=== PATIENT | male | born 1945 | race Caucasian/White ===

== ENCOUNTER → 2017-03-18 | Outpatient (CLI) | payer MEDICARE ==
[~2017-03-18] MED LIST: ALBUTEROL2.5 MG/0.1 INH; ASA81BEC PO; ASPIRIN81 M2 PO; ATORVASTATIN CA40 MG PO; CARDIZEM; CARDIZEM CD120 MG PO; CENTRUM SILVER1 EAC2 PO; CEPHALEXIN 500500 M3 PO; COUMADIN 2.5MG2.5 M1 PO; CRESTOR10 MG PO; ELIQUIS5 MG PO; FLOMAX0.4 MG PO; FLONASE 0.05%50 MCG NASAL; GEMFIBROZIL 60600 MG; HCTZ PO; HYDROCHLOROTH12.5 M1 PO; HYDROCHLOROTH12.5 MG; HYDROCHLOROTH12.5 MG PO; HYDROCHLOROTHIAZIDE PO; HYDROCODON-ACE1 EAC8 PO; HYDROCODONE-AP1 EA11 PO; HYDROCODONE-AP1 EAC6 PO; HYDROCODONE-APA1 TA1 PO; IRON; IRON PO; KEFLEX500 MG; LEVAQUIN 500 M500 M2 PO; LIORESAL 10 MG10 MG PO; LISINOPRIL10 MG PO; LOPRESSOR 50 MG50 M1; LOPRESSOR100 MG PO; METHADONE HCL 110 M1 PO; METHADONE HCL 110 MG PO; METHYLPHENIDATE5 M1 PO; METHYLPHENIDATE5 MG PO; METOPROLOL TAR100 MG PO; MOBIC7.5 MG PO; MULTIVITAMINS; MULTIVITAMINS PO; NORCO 5-325 TA1 EACH PO; PACERONE200 MG PO; PAXIL 20 MG TAB20 M1; PAXIL10 MG PO; PAXIL40 MG PO; PERCOCET 5-3251 EACH; PHENERGAN 25 MG25 M1 PO; PREDNISONE 10 M10 M1 PO; PRILOSEC 20 MG20 MG PO; PROSCAR 5MG TABL5 MG PO; RITALIN5 MG PO; SIMVASTATIN80 MG PO; SINGULAIR 10 MG10 M1 PO; SPIRIVA18 MCG IH; VENTOLIN HFA 1818 GM INH; VITAMIN C; VITAMIN C1000 MG PO; VITAMINC500 PO; XANAX 0.5 MG0.5 MG PO; ZOCOR40 MG PO; ZOCOR80 MG
--- NOTE | 2017-04-03 07:40 | PAINCON ---
[address] [address] PAIN MANAGEMENT CONSULTATION Name: SHAILESH ROSALES [id number] Admission: 03/18/17 Attend Phys: Josh Carranza DO Discharge: Date of : 49 Report #: [id number] THIS REPORT FOR: //name// CC: FERNANDEZ physician/PCP Josh Carranza Primary Care Physician Referring Physician HISTORY OF PRESENT ILLNESS: As you know, the patient is a pleasant 71-year-old male who returns today in followup visit for continuation of medication therapy. We are treating the patient for multiple pain generators with the most intensive generators of his low back. He suffers from symptomatic lumbar radiculopathy secondary to spinal stenosis. He indicates the pain medications are working beneficially, despite the elevated pain level provided today of 10/08. He returns today in followup visit to receive refill of medications and undergo an epidural injection under fluoroscopic guidance to address recurrent lumbar radicular symptoms. He denies injury or trauma that may have led to progression of symptoms. He states he has been in his normal state of health since our last visit, except for increasing back pain. ALLERGIES: NAPROXEN, SULFAMETHOXAZOLE AND CIPROFLOXACIN. CURRENT MEDICATIONS: Alprazolam, aspirin, atorvastatin, baclofen, diltiazem, finasteride, hydrochlorothiazide, hydrocodone, lisinopril, methadone, methylphenidate, metoprolol, omeprazole, paroxetine and tamsulosin. SOCIAL HISTORY: The patient continues to deny tobacco, alcohol, IV or illicit drug use. He is retired, retired years ago, unaccompanied today. IMAGING: No new imaging available. PHYSICAL EXAMINATION: VITAL SIGNS: Blood pressure 120/67, pulse 59 and respiratory rate 16, unlabored. The patient is 95% on room air. Current temperature 98.5 degrees Fahrenheit. Weight is 226 pounds, BMI calculated at 31. GENERAL: Well-developed, well-nourished and well-hydrated 71-year-old male. He appears his stated age, placing pain score anywhere between 7-8/10. HEENT: He is normocephalic, atraumatic. Pupils equal, round and reactive to light. Extraocular muscles are intact. Sclerae nonicteric, without injection. EXTREMITIES: Show no clubbing, no cyanosis and no edema. MUSCULOSKELETAL: Seated straight leg raising negative. Supine straight leg raising positive. Fabere's test negative. Modified Gaenslen's positive for axial back pain. Ankle clonus negative. Babinski is negative. Muscle bulk and tone is symmetrical in the lower extremities bilaterally. ASSESSMENT: 1. Sympt[place] [address] PAIN MANAGEMENT CONSULTATION Name: CONNIESHAILESH Sandy Room: [facility]#: [id number] Admission: 03/18/17 Attend Phys: Josh Carranza DO Discharge: Date of : 49 Report #: [id number] 2. Spinal stenosis of lumbar spine. 3. Displacement of lumbar intervertebral disk with radiculopathy. 4. Lumbosacral spondylosis with radiculopathy. 5. Lumbar degeneration. 6. Chronic intractable pain. PLAN: 1. The patient returns today in followup visit for medication management. He is also requested epidural injection under fluoroscopic guidance. The patient has noted good efficacy with epidurals in the past. He is hopeful to reduce his 7/10 pain today. He denies injury or trauma that may have led to progression of symptoms. Overall, the patient states medications in combination with periodic epidural injections worked well, up to 80% improvement in symptoms. He is hopeful to see similar improvement today. 2. The patient was provided prescription of methadone 10 mg dose 1 tab p.o. b.i.d., given the patient #60, releases of today, 4 weeks from today, 8 weeks from today and 3 months' worth of medication. 3. The patient was provided prescription of hydrocodone/acetaminophen 7.5/325 one tab every 6 hours p.r.n. for pain, #120, releases of today, 4 weeks from today, 8 weeks from today and 3 months' worth of medication. 4. The patient was provided prescription of methylphenidate 5 mg dose 1 tab p.o. b.i.d. I have given the patient #60 with 2 refills, 3 months' worth of medication. 5. The patient will return to our clinic in 3 months for ongoing medical therapy. We are hopeful today's epidural injection will provide the patient with good efficacy in conjunction with the medications. If this does not provide good response and his pain does return, I will have him return for the next in the series of epidural injections. PROCEDURE NOTE PROCEDURE: Lumbar epidural steroid injection under fluoroscopic guidance. DESCRIPTION OF PROCEDURE: After obtaining written consent, the patient was taken back to fluoroscopy suite, placed in prone position with pillow under abdomen to decrease lumbar lordosis. Skin overlying lumbosacral area was then prepped and draped in an aseptic fashion. Lumbar intervertebral spaces identified by AP fluoroscopy. Skin and subcutaneous tissue overlying target site of injection was anesthetized with 3 mL of 1% lidocaine. A 20-gauge 3-1/2 inch Tuohy needle advanced under fluoroscopic guidance towards the epidural space using a paramedian approach. Epidural space identified using loss of resistance to air technique. After negative aspiration for heme or cerebrospinal fluid, 1 mL of Omnipaque was injected. Lumbar epidurogram was confirmed using both AP and lateral fluoroscopy. [place] [address] PAIN MANAGEMENT CONSULTATION Name: SHAILESH ROSALES Room: [facility]#: [id number] Admission: 03/18/17 Attend Phys: Josh Carranza DO Discharge: Date of : 49 Report #: [id number] heme or cerebrospinal fluid, 5 mL of a solution containing 2 mL 40 mg per mL, 80 mg total triamcinolone, 3 mL lidocaine 1% injected slowly. Needle retracted skilled nursing, needle tract flushed with 3 mL of 1% lidocaine. Needle then removed. Sterile bandage placed over the injection site. No new motor deficits present in the lower extremity following procedure. The patient tolerated the procedure well, carefully escorted to the recovery room in stable condition. No apparent complication. After meeting discharge criteria, the patient discharged home. <ELECTRONICALLY SIGNED> By: Josh Carranza DO 04/03/17 0740 1206 [id number] Carranza DO /nt
== END | disposition home or self-care (01) ==
LOC: M.PC 01:12
DX: M51.16 Intervertebral disc disorders with radiculopathy, lumbar region (principal); M48.061 Spinal stenosis, lumbar region without neurogenic claudication; M47.27 Other spondylosis with radiculopathy, lumbosacral region; G89.29 Other chronic pain; I48.91 Unspecified atrial fibrillation; F41.8 Other specified anxiety disorders; Z88.2 Allergy status to sulfonamides; Z88.8 Allergy status to other drugs, medicaments and biological substances; Z79.899 Other long term (current) drug therapy; Z79.891 Long term (current) use of opiate analgesic; Z79.82 Long term (current) use of aspirin

== ENCOUNTER → 2017-06-24 | Outpatient (CLI) | payer MEDICARE ==
--- NOTE | 2017-06-24 15:46 | 2DMMODE ---
[place] [address] 2 D/M-MODE ECHOCARDIOGRAM Name: SHAILESH ROSALES Room: [facility]#: [id number] Admission: 06/24/17 Attend Phys: Dieudonne Rojas, Discharge: Date of : 49 Date of Service: 06/24/17 1546 Report #: [id number] THIS REPORT FOR: //name// APPROVED REPORT Study performed: 06/24/2017 15:00:04 EXAM: Comprehensive 2D, Doppler, and color-flow Echocardiogram Patient Location: Out-Patient Status: routine BSA: 2.17 HR: 72 bpm BP: 120/80 mmHg Other Information Study Quality: Good Indications Aortic Valve Disease 2D Dimensions LVEF(%): 53.38 (>50%) IVSd: 10.52 (7-11mm) LVOT Diam: 20.67 (18-24mm) LVDd: 49.17 mm PWd: 8.79 (7-11mm) Ascending Ao: 31.93 (22-36mm) LVDs: 35.61 (25-40mm) Aortic Root: 28.89 mm Brunson's LVEF: 53.38 % Volumes Left Atrial Volume (Systole) LA ESV Index: 24.40 mL/m2 Aortic Valve AoV Peak Cheo.: 2.48 m/s AO Peak Gr.: 24.62 mmHg LVOT Max P.52 mmHg AO Mean Gr.: 14.86 mmHg LVOT Mean P.04 mmHg LVOT Max V: 0.79 m/s AO V2 VTI: 44.93 cm LVOT Mean V: 0.46 m/s JJ (VTI): 1.30 cm2 LVOT V1 VTI: 17.37 cm Mitral Valve E/A Ratio: 0.89 MV Decel. Time: 209.27 [place] [address] 2 D/M-MODE ECHOCARDIOGRAM Name: SHAILESH ROSALES Room: [facility]#: [id number] Admission: 06/24/17 Attend Phys: Dieudonne Rojas, Discharge: Date of : 49 Date of Service: 06/24/17 1546 Report #: [id number] MV E Max Cheo.: 0.62 m/s MV PHT: 60.69 ms MVA (PHT): 3.63 cm2 TDI E/Lateral E': 5.64 E/Medial E': 8.86 Medial E' Cheo.: 0.07 m/s Lateral E' Cheo.: 0.11 m/s Pulmonary Valve PV Peak Cheo.: 1.15 m/s PV Peak Gr.: 5.31 mmHg Tricuspid Valve TR Peak Gr.: 33.00 mmHg RVSP: 38.00 mmHg Left Ventricle The left ventricle is normal size. There is normal LV segmental wall motion. There is normal left ventricular wall thickness. Left ventricular systolic function is normal. The left ventricular ejection fraction is within the normal range. LVEF is 55%. Grade I - abnormal relaxation pattern. Right Ventricle The right ventricle is normal size. The right ventricular systolic function is normal. Atria The left atrium size is normal. The right atrium size is normal. Aortic Valve Aortic bioprosthesis is noted Bioprosthetic aortic valve is present. No aortic regurgitation is present. No hemodynamically significant valvular aortic stenosis. Mitral Valve The mitral valve is normal in structure. Mild mitral regurgitation. No evidence of mitral valve stenosis. Tricuspid Valve The tricuspid valve is normal in structure. Mild tricuspid regurgitation. The RVSP is _38 mmHg. Pulmonic Valve The pulmonary valve is normal in structure. [place] [address] 2 D/M-MODE ECHOCARDIOGRAM Name: SHAILESH ROSALES Room: [facility]#: [id number] Admission: 06/24/17 Attend Phys: Dieudonne Rojas, Discharge: Date of : 49 Date of Service: 06/24/17 1546 Report #: [id number] Great Vessels The aortic root is normal in size. IVC is normal in size and collapses with >50% inspiration Pericardium There is no pericardial effusion. <Conclusion> The left ventricle is normal size. There is normal left ventricular wall thickness. Left ventricular systolic function is normal. The left ventricular ejection fraction is within the normal range. LVEF is 55%. Grade I - abnormal relaxation pattern. The right ventricle is normal size. The left atrium size is normal. Aortic bioprosthesis is noted No aortic regurgitation is present. No hemodynamically significant valvular aortic stenosis. The mitral valve is normal in structure. Mild mitral regurgitation. The tricuspid valve is normal in structure. Mild tricuspid regurgitation. The RVSP is _38 mmHg. The aortic root is normal in size. IVC is normal in size and collapses with >50% inspiration There is no pericardial effusion. There is normal LV segmental wall motion. Bioprosthetic aortic valve is present. <ELECTRONICALLY SIGNED> By: Zaid Silva MD, FACC 06/24/17 1546 1546 1546 Zaid Silva MD, FACC /INF
== END ==
LOC: M.CRD 14:46
DX: I08.1 Rheumatic disorders of both mitral and tricuspid valves (principal); Z95.2 Presence of prosthetic heart valve

== ENCOUNTER 2018-06-13 20:53 | Inpatient (IN) | payer OTHER, MEDICARE ==
[~2018-06-13] VITALS: Ht 180.3 cm; Wt 101.6 kg
[2018-06-13 21:08] VITALS: BP 111/64
[2018-06-13 21:50] LABS: URINE BILIRUBIN NEGATIVE (Negative); URINE BLOOD NEGATIVE (Negative); URINE CLARITY CLEAR; URINE COLOR YELLOW; URINE GLUCOSE-RANDOM NEGATIVE (Negative); URINE KETONES TRACE (Negative); URINE LEUKOCYTES NEGATIVE (Negative); URINE NITRITE NEGATIVE (Negative); URINE PROTEIN TRACE (Negative); URINE SPECIFIC GRAVITY >= 1.030 (1.005-1.030)
[2018-06-13 22:06] LABS: HEMATOCRIT 40.3 % (42.0-52.0); HEMOGLOBIN 13.8 gm/dL (14.0-18.0); MCH 27.9 pg (26.0-34.0); MCHC 34.3 g/dL (28.0-37.0); MCV 81.4 fL (80.0-100.0); MPV 7.7 fl. (7.2-11.1); RBC 4.95 mil/uL (4.50-6.00); RDW-CV 15.5 % (10.5-14.5); WBC 8.3 thou/uL (4.0-11.0)
[2018-06-13 22:14] LABS: APTT 26.4 Seconds (25.0-31.3); INR 1.2; PROTIME 11.9 Seconds (9.20-11.50)
[2018-06-13 22:30] LABS: ALBUMIN 3.3 g/dL (3.4-5.0); ALKALINE PHOSPHATASE 83 U/L (46-116); ANION GAP 7 mmol/L (7-16); BUN 25 mg/dL (7-18); CALCIUM 9.1 mg/dL (8.5-10.1); CHLORIDE 107 mmol/L (98-107); CO2 29 mmol/L (21-32); CREATININE 1.2 mg/dL (0.6-1.3); GLUCOSE 120 mg/dL (70-99); POTASSIUM 4.2 mmol/L (3.5-5.1); SGOT 16 U/L (15-37); SGPT 22 U/L (30-65); SODIUM 143 mmol/L (136-145); TOTAL BILIRUBIN 0.4 mg/dL (<0.1-1.0); TOTAL PROTEIN 6.5 g/dL (6.4-8.2); TROPONIN-I LEVEL <0.06 ng/mL (<0.06)
[2018-06-14 02:15] VITALS: BP 146/60
--- NOTE | 2018-06-14 04:55 | NUR ---
RECEIVED REPORT AND ASSUMED CARE OF PATIENT FROM ED. PATIENT REMAINS STABLE THIS SHIFT AND HAS DENIED FURTHER VISUAL DISTURBANCES. NIH 0 SINCE ADMISSION. PATIENT HAS C/O PAIN IN NECK, BACK, AND HIP THAT WAS PARTIALLY RELIEVED WITH PO MEDICATION. PATIENT HAS BEEN ENCOURAGED TO RELAX AND REPOSITION FOR COMFORT. MRI/MRA FOR THE AM, NEUROLOGY CONSULT PENDING. CALL LIGHT WITHIN REACH
[2018-06-14 05:37] LABS: CHOLESTEROL 235 mg/dL (<200); HDL CHOLESTEROL 38 mg/dL (>40); LDL CHOLESTEROL 171 mg/dL (<100); TC:HDL 6.2 Ratio (Not establshd); TRIGLYCERIDE 134 mg/dL (<150); VLDL 27 mg/dL (<40)
[2018-06-14 05:39] LABS: SERUM ASSESSMENT Clear
[2018-06-14 08:00] VITALS: BP 103/62
--- NOTE | 2018-06-14 14:58 | NUR ---
PT ORDERS RECEIVED. PT AND FAMILY PRESENT, PREPARING FOR DISCHARGE TO HOME. PT STATES NO CONCERNS REGARDING STABLE GAIT AND TRANSFERS, INDICATES STRONG SOCIAL SUPPORT AT HOME AND ACCESS TO DME IF INDICATED. PT DOES DEMO TO PT ABILITY TO TRANSFER AND GAIT INDEP W/O DME SUPPORT. PT DECLINES SKILLED PT SERVICES. WILL DISCHARGE FROM SKILLED PT SERVICES AT THIS TIME.
[2018-06-14] MEDS ORDERED: ELIQUIS5 MG PO ×2 (15:36→15:37)
[2018-06-14 15:39] VITALS: BP 126/66
[2018-06-14 15:46] VITALS: BP 126/66
[2018-06-14 15:50] VITALS: BP 126/66
--- NOTE | 2018-06-14 16:37 | NUR ---
PT ALERT AND ORIENTED X 4. DENIED PAIN AND NAUSEA. DENIES ANY VISUAL DEFICIT AT THIS TIME. IV PATENT. PT HAD MRI/MRA PROCEDURE DONE @ 1115. INDICATED PAIN AFTER PROCEDURE AND GIVEN HYDROCODONE FOR HIP, LOWER BACK, AND NECK PAIN. HAD SPEECH/SWALLOW EVAL EARLIER IN AM. RECEIVED REGULAR DIET TRAY FOR LUNCH-TOLERATED WELL. PT GIVEN DISCHARGE INSTRUCTIONS. IV REMOVED X 2. NIH STROKE SCALE COMPLETED WITH NO DEFICITS NOTED. PT LEFT WITH PERSONAL BELONGING BY W/C WITH NURSING STAFF TO LEAVE WITH SPOUSE BY PRIVATE CAR @ 3630.
[2018-06-14 16:49] VITALS: BP 126/66
--- NOTE | 2018-06-14 17:38 | EKG ---
[place] [address] ELECTROCARDIOGRAM REPORT Name: SHAILESH ROSALES Room: [address] IN M.R.#: [id number] Admission: 06/14/18 Attend Phys: Josh Ervin MD Discharge: 06/14/18 Date of : 49 Report #: [id number] THIS REPORT FOR: //name// [facility] ED Test Date: 2018-06-13 Test Time: 21:50:02 Pat Name: SHAILESH ROSALES Department: Room: [facility] Gender: M Surgical Services Manager: AP : 1945 Requested By: Jaye Heck Order Number: [id number] MD: Dieudonne Rojas Measurements Intervals [place] Rate: 71 P: 68 CT: 191 QRS: 42 QRSD: 87 T: 66 QT: 377 QTc: 410 Interpretive Statements Sinus rhythm Abnormal inferior Q waves ST elevation, consider inferior injury Compared to ECG 02/07/2016 04:32:24 Inferior Q waves now present Q waves now present Myocardial infarct finding now present ST (T wave) deviation still present Electronically Signed On 06-14-2018 17:38:40 CDT by Dieudonne Rojas [email or web address] <ELECTRONICALLY SIGNED> By: Dieudonne Rojas MD, FACC 06/14/18 1738 215 215 Dieudonne Rojas MD, FACC /EPI
[2018-06-15 03:06] LABS: GLYCOHEMOGLOBIN (HGB A1C) 5.3 % (4.8-5.6)
--- NOTE | 2018-06-15 08:22 | CON ---
[address] [address] CONSULTATION Name: CONNIESHAILESH E Room: [address]#: [id number] Admission: 06/14/18 Attend Phys: Josh Ervin MD Discharge: 06/14/18 Date of : 49 Report #: [id number] THIS REPORT FOR: //name// CC: Josh Cruz DO CARDIOLOGY CONSULTATION INDICATION: Acute visual loss. HISTORY OF PRESENT ILLNESS: The patient is a very pleasant 72-year-old gentleman who is well known to myself. He has a history of aortic valve replacement with a AVILA graft to the LAD in June 2013. At that time, he had an episode of atrial fibrillation without clinical recurrence. He has not been anticoagulated. He was admitted to the hospital with a "brown spot" over his right eye. The symptoms resolved within 2 hours. He has had no further complaint at this time. He denies any chest pain or shortness of breath. He is not having palpitations. PAST MEDICAL AND SURGICAL HISTORY: 1. Aortic valve replacement with AVILA graft to the LAD in June 2013. The aortic valve is a bioprosthetic valve. 2. Knee surgery remotely. 3. Pelvic fracture remotely. 4. Rotator cuff surgery remotely. 5. Tonsillectomy remotely. 6. Hyperlipidemia. 7. Hypertension. 8. Coronary artery disease. FAMILY HISTORY: Noncontributory. SOCIAL HISTORY: The patient quit smoking in 1997. He does not drink alcohol. ALLERGIES: CIPROFLOXACIN, NAPROSYN, SULFA. CURRENT MEDICATIONS: Xanax 0.5 mg p.r.n., aspirin 81 mg daily, atorvastatin 80 mg daily, baclofen 20 mg as directed, diltiazem CD 120 mg daily, finasteride 5 mg daily, hydrochlorothiazide 12.5 mg every other day, [place] 7.5/325 q.i.d. p.r.n., lisinopril 10 mg daily, methadone 10 mg daily or as directed, metoprolol 100 mg b.i.d., Nitrostat p.r.n., omeprazole 20 mg daily, Paxil 40 mg daily, Flomax 0.4 mg as directed, Tobrex eyedrops b.i.d. PHYSICAL EXAMINATION: [place] [address] CONSULTATION Name: CONNIESHAILESH Sandy Room: [address]#: [id number] Admission: 06/14/18 Attend Phys: Josh Ervin MD Discharge: 06/14/18 Date of : 49 Report #: [id number] VITAL SIGNS: Stable. Blood pressure 103/62, pulse 68 and regular. GENERAL: This is a very pleasant gentleman who is in no distress. Mood and affect appropriate. HEENT: Extraocular muscles intact. Mucous membranes moist. NECK: Shows no jugular venous distention. There are no carotid bruits. CHEST: Reveals clear lung newell. CARDIAC: Reveals regular rhythm with grade 2/6 systolic ejection murmur. ABDOMEN: Reveals normal bowel sounds. The abdomen is soft and nontender. EXTREMITIES: Shows no edema. Peripheral pulses 2+ and palpable. LABORATORY DATA: A 12-lead EKG shows sinus rhythm. Interestingly, there is some ST elevation in inferior leads with Q-waves inferiorly. The patient has no history of OK. Troponins are negative x 3 sets. IMPRESSION AND RECOMMENDATIONS: 1. Visual changes, possibly due to retinal embolism, have resolved. With a history of paroxysmal atrial fibrillation, would recommend full anticoagulation with Eliquis 5 mg b.i.d. The patient is to follow up in the office on July 03. 2. Coronary artery disease, presently stable. He is having no symptoms to suggest acute coronary syndrome. 3. Bioprosthetic aortic valve in place. Continue serial echocardiograms yearly. 4. Hypertension. Blood pressure adequately controlled on current cardiac regimen. 5. Hyperlipidemia. Continue atorvastatin 80 mg daily. At this point in time, the patient appears stable for discharge. Keep followup as directed. <ELECTRONICALLY SIGNED> By: Dieudonne Rojas MD, FACC 06/15/18 0822 1434 [id number] Rojas MD, FACC /nt
== END 2018-06-14 16:20 | disposition home or self-care (01) | DRG 69 ==
LOC: M.ERS 20:53 → M.TBA-ER 06-14 01:22 → M.2W 06-14 01:22
PROVIDERS: Physician Assistant; ADMIT Internal Medicine
DX: G45.9 Transient cerebral ischemic attack, unspecified (principal); M19.90 Unspecified osteoarthritis, unspecified site; I10 Essential (primary) hypertension; E78.00 Pure hypercholesterolemia, unspecified; I48.0 Paroxysmal atrial fibrillation; I25.10 Atherosclerotic heart disease of native coronary artery without angina pectoris; F43.10 Post-traumatic stress disorder, unspecified; Z96.643 Presence of artificial hip joint, bilateral; Z96.653 Presence of artificial knee joint, bilateral; I25.2 Old myocardial infarction; Z86.73 Personal history of transient ischemic attack (TIA), and cerebral infarction without residual deficits; Z87.891 Personal history of nicotine dependence; Z90.49 Acquired absence of other specified parts of digestive tract; Z95.1 Presence of aortocoronary bypass graft; Z87.81 Personal history of (healed) traumatic fracture; Z95.2 Presence of prosthetic heart valve; Z79.82 Long term (current) use of aspirin; Z79.899 Other long term (current) drug therapy; Z88.1 Allergy status to other antibiotic agents; Z88.2 Allergy status to sulfonamides; Z88.8 Allergy status to other drugs, medicaments and biological substances

== ENCOUNTER → 2019-02-03 | Outpatient (CLI) | payer MEDICARE ==
[2019-02-03 10:52] LABS: CHOLESTEROL 161 mg/dL (<200); HDL CHOLESTEROL 42 mg/dL (>40); LDL CHOLESTEROL 96 mg/dL (<100); TC:HDL 3.8 Ratio (Not establshd); TRIGLYCERIDE 116 mg/dL (<150); VLDL 23 mg/dL (<40)
[2019-02-03 10:53] LABS: SERUM ASSESSMENT Clear
== END ==
LOC: M.LAB 08:53
PROVIDERS: Internal Medicine Cardiovascular Disease
DX: I10 Essential (primary) hypertension (principal)

== ENCOUNTER → 2019-11-09 | Outpatient (CLI) | payer MEDICARE ==
[2019-11-09 11:18] LABS: CHOLESTEROL 145 mg/dL (<200); HDL CHOLESTEROL 49 mg/dL (>40); LDL CHOLESTEROL 80 mg/dL (<100); TRIGLYCERIDE 83 mg/dL (<150); VLDL 17 mg/dL (<40)
[2019-11-09 11:32] LABS: SERUM ASSESSMENT Clear
== END ==
LOC: M.LAB 08:12
PROVIDERS: ATTEND Internal Medicine Cardiovascular Disease
DX: E78.5 Hyperlipidemia, unspecified (principal)

== ENCOUNTER → 2020-01-27 | Outpatient (CLI) | payer MEDICARE | LOC: M.MRI 12:41 | PROVIDERS: ATTEND Anesthesiology Pain Medicine | DX: M43.22 Fusion of spine, cervical region (principal); M25.552 Pain in left hip; M48.02 Spinal stenosis, cervical region; M25.78 Osteophyte, vertebrae; M85.88 Other specified disorders of bone density and structure, other site; Z98.890 Other specified postprocedural states ==

== ENCOUNTER → 2020-03-18 | Outpatient (CLI) | payer MEDICARE ==
[~2020-03-18] MED LIST changes: +AMOXICILLIN 50500 MG PO; +DILTIAZEM 24HR120 M1 PO; +LEXAPRO20 MG PO; +LIPITOR40 MG PO; +MEDROLDOSEPACK PO; +XANAX 0.5 MG0.5 M1 PO
--- NOTE | 2020-03-21 17:38 | CARDNUC ---
[place] [address] CARDIAC NUCLEAR IMAGING REPORT Name: SHAILESH ROSALES Room: [facility]#: [id number] Admission: 03/18/20 Attend Phys: Dieudonne Rojas, Discharge: Date of : 49 Date of Service: 03/21/20 1738 Report #: [id number] THIS REPORT FOR: cc: Verna Cruz Linda J. DO Liston, Michael J. MD [facility] ~ APPROVED REPORT Imaging Protocol: Stress Tc-99m/Rest Tc-99m 1 day Study performed: 03/18/2020 12:30:00 Indication: Chest pain Patient Location: Out-Patient Stress Tech: Loraine Multani Stress Nurse: Ivon Farris RN Ht: 5 ft 11 in Wt: 216 lbs BSA: 2.18 m2 BMI: 30.12 Medical History Medical History: Atrial Fibrillation, HTN, Hyperlipidemia Medications: metoprolool, asa 81, diltiazem, lisinopril, atorvastatin Allergies: sulfa, cipro, naproxen Cardiac Risk Factors: Age, Hyperlipidemia, HTN Exercise History: Indeterminate Meds Held (24 hrs): metoprolol Resting Data Rest SPECT myocardial perfusion imaging was performed in supine position 30 minutes following the intravenous injection of 10.8 mCi of Tc-99m Sestamibi. Time of rest injection: 12:45 The images were gated to evaluate regional wall motion and calculate left ventricular ejection fraction. Administration Route: IV Administration Site: Right AC Pharmacologic Stress Pharmacologic stress test was performed by injecting Regadenoson 0.4 mg IV push over 10-15 seconds immediately followed by the intravenous injection of 33.8 mCi of Tc-99m Sestamibi. Time of stress injection: [address] [place] [address] CARDIAC NUCLEAR IMAGING REPORT Name: SHAILESH ROSALES Room: [facility]#: [id number] Admission: 03/18/20 Attend Phys: Dieudonne Rojas, Discharge: Date of : 49 Date of Service: 03/21/20 1738 Report #: [id number] Administration Route: IV Administration Site: Right AC Gated Stress SPECT was performed 45 minutes after stress injection. The images were gated to evaluate regional wall motion and calculate left ventricular ejection fraction. Prone imaging was performed. Stress Test Details Stress Test: Pharmacologic stress testing performed using 0.4 mg of regadenoson per 5 mL given IV over 10 seconds. Reason for pharmacologic stress test: physical limitation. HR Max Heart Rate (APMHR): 148 bpm Resting HR: 55 bpm Target HR (85% APMHR): 125 bpm Max HR Achieved: 74 bpm % of APMHR: 50 Recovery HR: 67 bpm BP Resting BP: 123/70 mmHg Max BP: 90/55 mmHg Recovery BP: 105/66 mmHg ECG Resting ECG: Sinus Rhythm Stress ECG: Sinus Rhythm ST Change: None Arrhythmia: None Recovery ECG: Sinus Rhythm Recovery ST Change: None Recovery Arrhythmia: None Clinical Reason for Termination: Completed protocol The patient tolerated Lexiscan infusion without significant cardiac symptoms. Nurse Comments pt unable to walk on treadmill due to back problems Stress ECG Conclusion Baseline twelve-lead EKG shows subtle ST elevation in the inferior and inferolateral leads that persist throughout the stress phase. No other significant abnormalities or changes were noted. There were no stress[place] [address] CARDIAC NUCLEAR IMAGING REPORT Name: CONNIESHAILESH LOI Room: [facility]#: [id number] Admission: 03/18/20 Attend Phys: Dieudonne Rojas, Discharge: Date of : 49 Date of Service: 03/21/20 1738 Report #: [id number] Study Quality Study: Good Artifact: No artifact Study Data At rest, the left ventricular ejection fraction was 59%.. Post stress, the left ventricular ejection was 63%.. TID = 0.95. Perfusion Perfusion images obtained at rest and post Lexiscan stress show a moderate size severe intensity defect involving the basal to mid inferior wall consistent with prior inferior wall infarct. No significant reversible defects were identified. Wall Motion The basal inferior wall appears severely hypokinetic to akinetic. There is septal wall motion abnormality of uncertain significance. Global LV systolic function appears preserved. Nuclear Conclusion ECG Findings: negative for ischemia Clinical Findings: negative for ischemia Nuclear Findings: negative for ischemia Exercise Capacity: not assessed Left Ventricular Function: Preserved Perfusion images show evidence of prior inferior wall infarct. There was no evidence of ischemia. Global LV systolic function is preserved. This is not a high risk study. <Conclusion> Baseline twelve-lead EKG shows subtle ST elevation in the inferior and inferolateral leads that persist throughout the stress phase. No other significant abnormalities or changes were noted. There were no stress-induced arrhythmias. <ELECTRONICALLY SIGNED> By: Dieudonne Rojas MD, FACC 03/21/20 1738 1738 1738 Dieudonne Rojas MD, FACC /INF
== END ==
LOC: M.NUC 03-14 12:43
PROVIDERS: ATTEND Internal Medicine Cardiovascular Disease
DX: I25.10 Atherosclerotic heart disease of native coronary artery without angina pectoris (principal); R07.9 Chest pain, unspecified; I48.91 Unspecified atrial fibrillation; I10 Essential (primary) hypertension; E78.5 Hyperlipidemia, unspecified; Z88.8 Allergy status to other drugs, medicaments and biological substances

== ENCOUNTER 2020-03-22 10:48 | Observation (INO) | payer MEDICARE ==
[2020-03-22] VITALS (10 sets, daily range): BP systolic 98–149; BP diastolic 53–70
[~2020-03-22] VITALS: Ht 182.9 cm; Wt 97.5 kg
[~2020-03-22 10:48] MED LIST changes: -AMOXICILLIN 50500 MG PO; -DILTIAZEM 24HR120 M1 PO; -LEXAPRO20 MG PO; -MEDROLDOSEPACK PO; -XANAX 0.5 MG0.5 M1 PO
[2020-03-22] MEDS ORDERED: DILTIAZEM 24HR120 M1 PO (11:02)
[2020-03-22] MEDS ORDERED: LEXAPRO20 MG PO (11:03)
[2020-03-22] MEDS ORDERED: XANAX 0.5 MG0.5 M1 PO (11:03)
[2020-03-22 11:15] LABS: ABSOLUTE BASOPHILS 0.1 thou/uL (0.0-0.2); ABSOLUTE LYMPHOCYTES 1.4 thou/uL (0.8-5.3); ABSOLUTE MONOCYTES 1.1 thou/uL (0.0-1.2); BASOPHILS 0.4 %; EOSINOPHILS 0.1 %; HEMATOCRIT 40.5 % (42.0-52.0); HEMOGLOBIN 13.7 gm/dL (14.0-18.0); LYMPHOCYTES 9.4 %; MCH 27.7 pg (26.0-34.0); MCHC 33.8 g/dL (28.0-37.0); MCV 81.9 fL (80.0-100.0); MONOCYTES 7.8 %; MPV 7.1 fl. (7.2-11.1); NUCLEATED RBCS 0 /100WBC; PLATELET COUNT* 315 thou/uL (150-400); POLYS 82.3 %; RBC 4.94 mil/uL (4.50-6.00); RDW-CV 15.5 % (10.5-14.5); WBC 14.6 thou/uL (4.0-11.0)
[2020-03-22 11:24] LABS: CALCIUM 9.4 mg/dL (8.5-10.1); CREATININE 0.8 mg/dL (0.6-1.3); POTASSIUM 4.3 mmol/L (3.5-5.1)
[2020-03-22 11:35] LABS: APTT < 20.0 Seconds (25.0-31.3); INR 1.1
[2020-03-22 11:36] LABS: ALBUMIN 3.3 g/dL (3.4-5.0); TOTAL BILIRUBIN 0.4 mg/dL (<0.1-1.0); TOTAL PROTEIN 6.9 g/dL (6.4-8.2)
[2020-03-22] MEDS ORDERED: MEDROLDOSEPACK PO (15:13)
[2020-03-22] MEDS ORDERED: AMOXICILLIN 50500 MG PO (15:14)
--- NOTE | 2020-03-22 16:47 | EKG ---
[place] [address] ELECTROCARDIOGRAM REPORT Name: CONNIESHAILESH LOI Room: [address] ADM IN M.R.#: [id number] Admission: 03/22/20 Attend Phys: Dieudonne Rojas, Discharge: Date of : 49 Date of Service: 03/22/20 1055 Report #: [id number] THIS REPORT FOR: //name// [facility] ED Test Date: 2020-03-22 Test Time: 10:55:34 Pat Name: SHAILESH ROSALES Department: Room: [address] Gender: M It Risk Analyst: BRIAN : 1945 Requested By: Dieudnone Rojas Order Number: [id number] Reading MD: Dieudonne Rojas Measurements Intervals [place] Rate: 58 P: 111 AK: 213 QRS: 50 QRSD: 89 T: 50 QT: 394 QTc: 387 Interpretive Statements Sinus rhythm Consider left ventricular hypertrophy ST elevation suggests acute pericarditis Baseline wander in lead(s) V2 Compared to ECG 06/13/2018 21:50:02 Inferior Q waves no longer present Q waves no longer present Myocardial infarct finding no longer present ST (T wave) deviation still present Electronically Signed On 03-22-2020 16:47:00 PRODUCTION CONTROL ANALYST by Dieudonne Rojas [email or web address] <ELECTRONICALLY SIGNED> By: Dieudonne Rojas MD, FAC 03/22/20 1647 1055 1055 Dieudonne Rojas MD, FAC /EPI
--- NOTE | 2020-03-22 16:48 | EKG ---
[place] [address] ELECTROCARDIOGRAM REPORT Name: CONNIESHAILESH LOI Room: [address] ADM IN M.R.#: [id number] Admission: 03/22/20 Attend Phys: Dieudonne Rojas, Discharge: Date of : 49 Date of Service: 03/22/20 1238 Report #: [id number] THIS REPORT FOR: //name// [facility] ED Test Date: 2020-03-22 Test Time: 12:38:23 Pat Name: SHAILESH ROSALES Department: Room: [facility] Gender: M Supervisor Customer Complaint Service: RANDY : 1945 Requested By: Lydia Moreno Order Number: [id number] MD: Dieudonne Rojas Measurements Intervals [place] Rate: 46 P: 63 MO: 171 QRS: 39 QRSD: 88 T: 55 QT: 443 QTc: 388 Interpretive Statements Sinus bradycardia Consider left ventricular hypertrophy Inferior infarct, acute (LCx) Lateral leads are also involved Compared to ECG 06/13/2018 21:50:02 Sinus rhythm no longer present Inferior Q waves no longer present Q waves no longer present ST (T wave) deviation no longer present Myocardial infarct finding still present Electronically Signed On 03-22-2020 16:47:54 DEALER RELATIONSHIP MANAGER by Dieudonne Rojas [email or web address] <ELECTRONICALLY SIGNED> By: Dieudonne Rojas MD, FACC 03/22/20 1647 1238 1238 Dieudonne Rojas MD, FAC /EPI
[2020-03-23] VITALS: BP 125/62
[2020-03-23 04:00] VITALS: BP 118/60
[2020-03-23 05:08] LABS: ABSOLUTE EOSINOPHILS 0.1 thou/uL (0.0-0.7); ABSOLUTE LYMPHOCYTES 1.2 thou/uL (0.8-5.3); ABSOLUTE MONOCYTES 0.7 thou/uL (0.0-1.2); ABSOLUTE NEUTROPHILS 7.7 thou/uL (1.6-8.1); BASOPHILS 0.4 %; EOSINOPHILS 0.8 %; HEMATOCRIT 37.5 % (42.0-52.0); HEMOGLOBIN 12.7 gm/dL (14.0-18.0); LYMPHOCYTES 12.4 %; MCH 27.8 pg (26.0-34.0); MCHC 33.8 g/dL (28.0-37.0); MONOCYTES 7.4 %; MPV 7.5 fl. (7.2-11.1); NUCLEATED RBCS 0 /100WBC; RBC 4.57 mil/uL (4.50-6.00); RDW-CV 15.6 % (10.5-14.5); WBC 9.8 thou/uL (4.0-11.0)
[2020-03-23 05:27] LABS: PLATELET COUNT* 216 thou/uL (150-400)
[2020-03-23 05:41] LABS: CALCIUM 9.6 mg/dL (8.5-10.1); CREATININE 0.6 mg/dL (0.6-1.3); POTASSIUM 4.7 mmol/L (3.5-5.1)
[2020-03-23 08:00] VITALS: BP 127/71
[2020-03-23] MEDS ORDERED: DILTIAZEM 24HR120 M1 PO (08:44)
--- NOTE | 2020-03-23 10:15 | H ---
[place] [address] HISTORY AND PHYSICAL Name: SHAILESH ROSALES Room: [address] M.R.#: [id number] Admission: 03/22/20 Attend Phys: Dieudonne Rojas MD Discharge: Date of : 49 Report #: [id number] THIS REPORT FOR: cc: Verna Cruz Linda J. DO ~ Dieudonne Rojas MD [facility] DATE OF SERVICE: 03/22/2020 INDICATION: Inferior STEMI. HISTORY OF PRESENT ILLNESS: The patient is a very pleasant 74-year-old gentleman who is well known to myself. He has a history of bioprosthetic aortic valve replacement with AVILA graft to the LAD in 2013. The patient has been having some recent increase in chest pain. Initially, his diltiazem was changed to b.i.d. Stress testing last week was not remarkable. The patient presented to the Emergency Room this morning with some chest discomfort in the left and right sternal region radiating to the neck with intermittent episodes. He took nitroglycerin at home without relief. He was given 4 sublingual aspirins in the Emergency Room with relief of his pain. He was noted to be transiently bradycardic. A repeat EKG showed some ST elevation in the inferior leads. He is being brought to the cardiac catheterization lab for emergent angiography and possible intervention. CARDIAC RISK FACTORS: Include hypertension and dyslipidemia for which he takes medications. CURRENT MEDICATIONS: Xanax 0.5 mg p.r.n. anxiety, aspirin 81 mg daily, baclofen 20 mg daily, diltiazem 120 mg b.i.d., Proscar 5 mg daily, [place] 7.5/325 one tablet q.i.d. p.r.n., lisinopril 10 mg daily, methadone 5 mg as directed, Lopressor 100 mg b.i.d., Nitrostat sublingual p.r.n., omeprazole 20 mg daily, Paxil 20 mg daily, Flomax 0.4 mg daily. FAMILY HISTORY: Positive for coronary artery disease. SOCIAL HISTORY: The patient denies use of tobacco or alcohol. PAST MEDICAL HISTORY: Significant for: 1. Coronary artery disease. 2. Bioprosthetic aortic valve replacement. 3. Hypertension. 4. Dyslipidemia. 5. Paroxysmal atrial fibrillation. 6. [place] [address] HISTORY AND PHYSICAL Name: SHAILESH ROSALES Room: [address]#: [id number] Admission: 03/22/20 Attend Phys: Dieudonne Rojas MD Discharge: Date of : 49 Report #: [id number] REVIEW OF SYSTEMS: Positive for chest discomfort and dyspnea. He denies orthopnea or paroxysmal nocturnal dyspnea. A 14-point review of systems otherwise unremarkable. PHYSICAL EXAMINATION: VITAL SIGNS: Blood pressure 132/68, pulse is 72 and presently regular. GENERAL: This is a pleasant gentleman who does not appear to be in distress. Mood and affect appropriate. HEENT: Extraocular muscles intact. Mucous membranes are moist. NECK: Shows no jugular venous distention. There are no carotid bruits. CHEST: Reveals clear lung newell without wheezes or rales. CARDIOVASCULAR: Reveals a regular rhythm, normal S1 and S2. I do not appreciate gallop or murmur. ABDOMEN: Reveals normal bowel sounds. The abdomen is soft, nontender. EXTREMITIES: Shows no edema. Peripheral pulses are 2+ and easily palpable. SKIN: Warm and dry. LABORATORY DATA: Reviewed. Electrolytes within normal limits. BUN 37, creatinine 0.8. Troponin less than 0.06. Second troponin pending. NT-proBNP 233. IMPRESSION AND RECOMMENDATIONS: 1. Inferior ST elevation myocardial infarction. We will proceed with angiography and possible intervention as directed. 2. Coronary artery disease. Continue daily aspirin and risk factor modification. He will likely be on dual antiplatelet therapy. 3. Hypertension. Blood pressure adequately controlled on current regimen. 4. Dyslipidemia. We will check fasting lipid profile. Continue statin agent. 5. Bradycardia, likely due to underlying ischemia. We will follow clinically at this time. 6. History of bioprosthetic aortic valve replacement. We will continue to follow with serial echocardiograms. <ELECTRONICALLY SIGNED> By: Dieudonne Rojas MD, FACC 03/23/20 1015 1307 [id number] Rojas MD, FACC /nt
[2020-03-23 11:17] VITALS: BP 127/71
--- NOTE | 2020-03-24 09:35 | D ---
[address] [address] DISCHARGE SUMMARY Name: SHAILESH ROSALES Room: [address] Justin Jeong#: [id number] Admission: 03/22/20 Attend Phys: Dieudonne Rojas MD Discharge: 03/23/20 Date of : 49 Report #: [id number] THIS REPORT FOR: cc: Verna Cruz Linda J. DO ~ Dieudonne Rojas MD [facility] DATE OF SERVICE: 03/22/2020 INDICATION: Chest pain with abnormal EKG. HOSPITAL COURSE: The patient was seen in the Emergency Room with fairly typical sounding chest pain. EKG showed some ST elevation in the inferolateral leads that retrospectively are not acute, but chronic. In the setting of ST elevation with chest pain in the Emergency Room, he was taken to the catheterization lab. This showed moderate 50% narrowing in the distal right coronary artery. There was a 70% tubular narrowing of the proximal LAD. He has had previous bioprosthetic aortic valve replacement with a AVILA graft to the LAD. No intervention was undertaken. The patient was observed in the hospital overnight and remained stable. He did rule out for myocardial infarction by cardiac enzymes. Part of his chest pain was felt to possibly be due to some spasm. His medications were adjusted with increasing his diltiazem to twice daily and discontinuing his lisinopril. The patient is being discharged uneventfully. DISCHARGE MEDICATIONS: Will include: 1. Aspirin 81 mg daily. 2. Citalopram 40 mg daily. 3. Diltiazem 120 mg b.i.d. 4. Finasteride 5 mg daily. 5. Alprazolam 0.5 mg t.i.d. 6. Amoxicillin 500 t.i.d. for 1 more day. 7. Atorvastatin 40 mg at bedtime. 8. Metoprolol tartrate 100 mg b.i.d. 9. Flomax 0.4 mg p.o. at bedtime. 10. Methadone 10 mg four times a day.. 11. Hydrocodone/acetaminophen p.r.n. 12. Zofran p.r.n. 13. Nitrostat sublingual p.r.n. DISPOSITION: The patient will follow up in the Cardiology office in 4 weeks. <ELECTRONICALLY SIGNED> By: Dieudonne Rojas MD, FACC 03/24/20 0935 0840 [id number] Rojas MD, FACC /nt
--- NOTE | 2020-03-24 12:45 | CARD ---
[address] [address] CARDIAC CATH REPORT Name: SHAILESH ROSALES Room: [address] Jean-Paul#: [id number] Admission: 03/22/20 Attend Phys: Dieudonne Rojas MD Discharge: 03/23/20 Date of : 49 Report #: [id number] THIS REPORT FOR: cc: Verna Cruz Linda J. DO ~ Dieudonne Rojas MD [facility] APPROVED REPORT Study performed: 03/22/2020 13:07:24 Patient Details Patient Status: In-Patient Room #: The patient is a 74 year-old male Event Personnel Dieudonne Rojas Web Ui Designer, Cherelle Narayanan RN RN, Josh Lozano SR. PAYROLL PROCESSOR Monitor, Shukri Anderson SR. PAYROLL PROCESSOR Scrub Procedures Performed Left heart catheterization, coronary angiography and AVILA graft angiography. Indication Chest pain with ST segment elevation on EKG and patient with known coronary artery disease. Risk Factors Dysplipidemia , Hypertension Previous Procedures/Diagnoses Bioprosthetic aortic valve replacement with AVILA graft to the LAD. Admission/Lab Medications/Medications given during procedure Aspirin, Lipid Lowering Agents, ACEI/ARB, Beta Sukumar Procedure Narrative The patient was brought urgently to the Cardiac Catheterization Laboratory and was prepped and draped in a sterile manner. The right femoral was infiltrated with 1% Lidocaine subcutaneous anesthesia. A Burney 6 FR sheath was inserted into the right femoral artery. Coronary angiography was performed using coronary diagnostic catheters. The right coronary system was accessed and visualized with a JR4 6fr catheter. The left coronary [place] [address] CARDIAC CATH REPORT Name: SHAILESH ORSALES [address] [id number] Admission: 03/22/20 Attend Phys: Dieudonne Rojas MD Discharge: 03/23/20 Date of : 49 Report #: [id number] visualized with a JL4 6fr catheter. The left ventricle was accessed and visualized with a JL4 6frJR4 6fr (Pressures only) catheter. Left ventricular/Aortic Valve gradient assessed via catheter pullback. Closure device was deployed with a Fr MynxGrip 6/7F. The patient tolerated the procedure well and there were no complications associated with the procedure. There was no hematoma. Intraoperative Conscious Sedation Sedation start time: 1306 Case end Time: 1333 Fluoro Time: 10.0 minutes Dose: DAP 24849 cGycm2 1316 mGy Contrast Type and Amount: Visipaque 120 ml Coronary Angiography The patient's coronary anatomy is right dominant. [place] Artery Percent Stenosis A AVILA graft to the mid left anterior descending coronary artery is widely patent with good distal anastomoses. Diagnostic Cath Left Main The left main coronary artery is normal and bifurcates into a left anterior descending, intermediate ramus and circumflex coronary arteries. LAD The left anterior descending coronary artery has a long tubular 70% narrowing extending from the proximal to mid vessel. The distal vessel is free of significant disease and fills both antegradely and by AVILA graft. Diagonal 1 The first diagonal branches without significant disease and fills both antegrade and by AVILA graft. Circumflex The circumflex coronary artery is normal in its proximal mid and distal portion. OM1 A large branch first obtuse marginal branch is normal. Right Coronary The right coronary artery is normal in its proximal and midportion. Distally there is moderate 50% narrowing noted. R PDA The right PDA is normal. RPLV A small to moderate branched right posterior lateral branch is normal. Ramus A moderate-sized intermediate ramus branch with marginal distribution appears normal. Left Ventriculography Left Ventriculography [place] [address] CARDIAC CATH REPORT Name: SHAILESH ROSALES Room: [address]#: [id number] Admission: 03/22/20 Attend Phys: Dieudonne Rojas MD Discharge: 03/23/20 Date of : 49 Report #: [id number] Hemodynamics The aortic pressure is 134/60 mmHg with a mean of 37 mmHg. The left ventricular pressure is 158/1 mmHg with a mean of mmHg. The left ventricular end diastolic pressure is 20 mmHg. Pullback from the left ventricle to the aorta revealed a 24 mm gradient across the aortic valve. Conclusion 1. Moderate nonocclusive coronary artery disease as outlined above. 2. Patent AVILA graft to the LAD. 3. Bioprosthetic aortic valve functioning normally. 4. Mildly elevated left ventricular end-diastolic pressure. Recommendations 1. Continue medical management and aggressive risk factor modification. <ELECTRONICALLY SIGNED> By: Dieudonne Rojas MD, FACC 03/24/20 1244 1244 1244Microsalia Rojas MD, FACC /INF
== END 2020-03-23 11:51 | disposition home or self-care (01) ==
LOC: M.ERS 10:48 → M.2W 14:00 → M.TBA-ER 14:00 → M.2W 15:42
PROVIDERS: Personal Emergency Response Attendant; ADMIT Internal Medicine Cardiovascular Disease; ATTEND Internal Medicine Cardiovascular Disease
DX: I21.19 ST elevation (STEMI) myocardial infarction involving other coronary artery of inferior wall (principal); I10 Essential (primary) hypertension; E78.5 Hyperlipidemia, unspecified; I48.0 Paroxysmal atrial fibrillation; R00.1 Bradycardia, unspecified; Z95.2 Presence of prosthetic heart valve; Z79.82 Long term (current) use of aspirin; Z79.899 Other long term (current) drug therapy; Z88.1 Allergy status to other antibiotic agents; Z88.8 Allergy status to other drugs, medicaments and biological substances

== ENCOUNTER 2020-05-16 02:27 | Observation (INO) | payer MEDICARE ==
[~2020-05-16] VITALS: Ht 182.9 cm; Wt 100.2 kg
[2020-05-16] VITALS (7 sets, daily range): BP systolic 102–140; BP diastolic 57–84
[~2020-05-16 02:27] MED LIST changes: +AMOXICILLIN 50500 MG PO; +DILTIAZEM 24HR120 M1 PO; +LEXAPRO20 MG PO; +MEDROLDOSEPACK PO; +XANAX 0.5 MG0.5 M1 PO
[2020-05-16] MEDS ORDERED: LISINOPRIL5 MG PO (02:47)
[2020-05-16] MEDS ORDERED: LEXAPRO 10 MG T10 M1 PO (02:48)
[2020-05-16] MEDS ORDERED: LIPITOR80 MG PO (02:48)
[2020-05-16] MEDS ORDERED: NITROSTAT0.4 M1 (02:52)
[2020-05-16 03:30] LABS: ABSOLUTE BASOPHILS 0.1 thou/uL (0.0-0.2); ABSOLUTE EOSINOPHILS 0.2 thou/uL (0.0-0.7); ABSOLUTE LYMPHOCYTES 1.7 thou/uL (0.8-5.3); ABSOLUTE MONOCYTES 0.5 thou/uL (0.0-1.2); ABSOLUTE NEUTROPHILS 5.7 thou/uL (1.6-8.1); BASOPHILS 0.8 %; EOSINOPHILS 2.1 %; HEMATOCRIT 41.4 % (42.0-52.0); HEMOGLOBIN 13.9 gm/dL (14.0-18.0); LYMPHOCYTES 20.3 %; MCH 28.3 pg (26.0-34.0); MCHC 33.6 g/dL (28.0-37.0); MCV 84.2 fL (80.0-100.0); MONOCYTES 6.7 %; NUCLEATED RBCS 0 /100WBC; PLATELET COUNT* 243 thou/uL (150-400); POLYS 70.1 %; RBC 4.92 mil/uL (4.50-6.00); RDW-CV 14.4 % (10.5-14.5); WBC 8.1 thou/uL (4.0-11.0)
[2020-05-16 03:35] LABS: CALCIUM 8.5 mg/dL (8.5-10.1); CREATININE 1.1 mg/dL (0.6-1.3); POTASSIUM 3.8 mmol/L (3.5-5.1)
[2020-05-16 03:45] LABS: ALBUMIN 3.4 g/dL (3.4-5.0); MAGNESIUM 1.7 mg/dL (1.8-2.4); TOTAL BILIRUBIN 0.6 mg/dL (<0.1-1.0); TOTAL PROTEIN 6.3 g/dL (6.4-8.2)
[2020-05-16 03:46] LABS: INR 1.1; PROTIME 11.4 Seconds (9.20-11.50)
[2020-05-16] MEDS ORDERED: PRILOSEC OTC20 MG PO (08:16)
--- NOTE | 2020-05-16 10:30 | NUR ---
PT ADMITTED TO ROOM 224 VIA CART FROM ED AT APPROXIMATELY 0800. ADMISSION ASSESSMENT AND HISTORY COMPLETED CHARTED. SEPSIS SCREENING NEGATIVE. PT ORIENTED TO ROOM AND CALL LIGHT. AT BEDSIDE. HOME MEDICATIONS RECONCILED. PT A&0X4, DENIES ANY PAIN OR SHORTNESS OF BREATH AT THIS TIME. PT STATES HE HAS NO SHORTNESS OF BREATH AT REST, DOES EXPERIENCE SHORTNESS OF BREATH WITH EXERTION. ON RA SAT UPPER 90'S. 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 RATE CONTROLLED IN THE 80'S. PT UP AD JAY IN ROOM. CARDIOLOGY CONSULT IN PLACE. DR. MUNIZ HERE TO SEE PT. ORDERS RECEIVED FOR 40MG IVP LASIX. GIVEN PER EMAR. MAGNESIUM 1.7- REPLACED PER ELECTROLYTE PROTOCOL. PT TO HAVE ECHO TODAY. MEDS PER MAY. PT REPOSITIONS SELF. HOURLY ROUNDING OBSERVED. BED IN LOW POSITION. CALL LIGHT WITHIN REACH. WILL CONTINUE PLAN OF CARE.
--- NOTE | 2020-05-16 11:14 | EKG ---
[place] [address] ELECTROCARDIOGRAM REPORT Name: SHAILESH RSOALES Room: [address] M.R.#: [id number] Admission: 05/16/20 Attend Phys: Josh Ervin, Discharge: Date of : 49 Date of Service: 05/16/20 0234 Report #: [id number] THIS REPORT FOR: //name// [facility] ED Test Date: 2020-05-16 Test Time: 02:34:40 Pat Name: SHAILESH ROSALES Department: Room: [facility] Gender: M Examination Proctor: EBONIE Truong : 1945 Requested By: Elissa Martinez Order Number: [id number] MD: Tony Young Measurements Intervals [place] Rate: 62 P: [place]: QRS: 39 QRSD: 90 T: 15 QT: 377 QTc: 383 Interpretive Statements Atrial fibrillation Left ventricular hypertrophy Compared to ECG 03/22/2020 12:38:23 Sinus bradycardia no longer present Electronically Signed On 05-16-2020 11:14:20 GUIDANCE COUNSELOR by Tony Young [email or web address] <ELECTRONICALLY SIGNED> By: Tony Young MD, FAC 05/16/20 1114 0234 0234 Tony Young MD, [facility] /EPI
--- NOTE | 2020-05-16 12:09 | CON ---
[address] [address] CONSULTATION Name: SHAILESH ROSALES Room: [address] M.R.#: [id number] Admission: 05/16/20 Attend Phys: Josh Ervin MD Discharge: Date of : 49 Report #: [id number] THIS REPORT FOR: cc: Verna Cruz Linda J. DO Tony Young MD [facility] DATE OF SERVICE: 05/16/2020 CARDIOLOGY CONSULTATION HISTORY OF PRESENT ILLNESS: The patient is a 74-year-old white male who I was asked to see in the hospital today after he complained of being short of breath. The patient's past medical history significant for presentation in 2013 with chest pain. He was found to have coronary artery disease and aortic stenosis. He was admitted to [facility] and underwent aortic valve replacement using a bioprosthetic valve and single vessel bypass surgery with AVILA graft to the LAD. He has been followed by my partner, Dr. Rojas. He actually had a repeat cardiac catheterization in 03/2020 that showed a 70% narrowing of the LAD with a patent AVILA graft, normal circumflex, right coronary had only 50% stenosis. No intervention was performed. His last echocardiogram was in 05/2017 here at [place] that showed ejection fraction of 55%, normal functioning of the aortic bioprosthesis with no significant stenosis and no regurgitation. The patient is not very active at this time because of chronic back pain. He actually just saw my nurse practitioner last month. The patient does have a history of postoperative atrial fibrillation. The patient states that recently he has had increasing shortness of breath. He denies any fever, cough or swelling of his feet. Denies any orthopnea or PND. He denies any medical noncompliance. Last night, the fire alarm of his house went off and he went up to change the battery. Walking back to bed, he became more short of breath and his son brought him to the hospital and was admitted to in the morning. He denies any noncompliance. PAST MEDICAL HISTORY: Otherwise significant for cholecystectomy, foot surgery, hip replacement, knee surgery, shoulder surgery, tonsillectomy, hypertension and hyperlipidemia. CURRENT MEDICATIONS: Include aspirin, Lipitor, diltiazem, Lexapro, Proscar, [place], methadone, metoprolol, omeprazole and Flomax. ALLERGIES: HE HAS PREVIOUS INTOLERANCE TO SULFA DRUGS AND CIPRO. FAMILY HISTORY: His mother had heart disease. SOCIAL HISTORY: He is . He and his live in [place] [address] CONSULTATION Name: SHAILESH ROSALES Room: [address] M.R.#: [id number] Admission: 05/16/20 Attend Phys: Josh Ervin MD Discharge: Date of : 49 Report #: [id number] disability because of chronic back pain. 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 Quit smoking 20 years ago. No alcohol abuse. REVIEW OF SYSTEMS: He apparently had a TIA in the past with facial drooping. He has had no history of asthma, liver disease, kidney disease, cancer or psychiatric illness. [facility]. No chronic skin condition. PHYSICAL EXAMINATION: GENERAL: Revealed an elderly male, lying in bed, appeared in no distress. VITAL SIGNS: He had a blood pressure of 130/60, pulse 60 and he is afebrile. HEENT: He was anicteric. Conjunctivae pink. Mucous membranes moist. NECK: Veins are nondistended. No carotid bruits. Neck supple. CHEST: Clear to auscultation. CARDIOVASCULAR: Regular rate and grade 3 systolic ejection murmur along left sternal border. ABDOMEN: Soft. EXTREMITIES: Had no edema. Posterior tibial pulse 1+ bilaterally. SKIN: Cool and dry. NEUROLOGIC: Nonfocal. LABORATORY DATA: His ECG on admission last night showed atrial fibrillation with a controlled ventricular response rate. His workup otherwise, sodium 144 and creatinine 1.1. Troponin 0.06. BNP 2515. His white blood cell count 8.1 and hemoglobin 13.9. His rapid COVID antigen test was negative. His portable chest x-ray in the Emergency Room last night showed clear lung newell and normal heart size. IMPRESSION AND RECOMMENDATIONS: 1. Atrial fibrillation. Onset unclear. Rate controlled with diltiazem. I would not recommend attempts at cardioversion. I would recommend anticoagulation. 2. Shortness of breath. Reason unclear. 3. Previous aortic valve replacement using tissue valve. Recommend echocardiogram. 4. Coronary artery disease with previous AVILA graft to the LAD. 5. Hypertension. Blood pressure appears controlled on calcium sonu and beta sonu. 6. Hyperlipidemia. The patient is on a statin drug. 7. Chronic back pain. The patient is on narcotics. 8. Previous tobacco abuse. <ELECTRONICALLY SIGNED> By: Tony Young MD, FACC 05/16/20 1209 0926 0938Daviyadira Young MD, FACC /nt
--- NOTE | 2020-05-16 12:19 | 2DMMODE ---
[place] [address] 2 D/M-MODE ECHOCARDIOGRAM Name: SHAILESH ROSALES Room: [address] MMichaelR.#: [id number] Admission: 05/16/20 Attend Phys: Josh Ervin, Discharge: Date of : 49 Date of Service: 05/16/20 1219 Report #: [id number] THIS REPORT FOR: cc: Verna Cruz,Verna Liz,Tony Espinosa MD [facility] ~ APPROVED REPORT Study performed: 05/16/2020 10:31:17 EXAM: Comprehensive 2D, Doppler, and color-flow Echocardiogram Patient Location: In-Patient Room #: 224 Status: routine BSA: 2.20 HR: 75 bpm BP: 140/77 mmHg Rhythm: Atrial Fibrillation Other Information Study Quality: Good Indications Atrial Fibrillation Dyspnea CAD 2D Dimensions IVSd: 9.66 (7-11mm) LVOT Diam: 19.59 (18-24mm) LVDd: 51.55 mm PWd: 10.40 (7-11mm) Ascending Ao: 34.76 (22-36mm) LVDs: 35.76 (25-40mm) Aortic Root: 33.08 mm Volumes Left Atrial Volume (Systole) LA ESV Index: 36.80 mL/m2 Aortic Valve AoV Peak Cheo.: 2.36 m/s AO Peak Gr.: 22.20 mmHg LVOT Max P.63 mmHg AO Mean Gr.: 12.34 mmHg LVOT Mean P.30 mmHg LVOT Max V: 0.81 m/s AO V2 VTI: 41.21 cm LVOT Mean V: 0.52 m/[place] [address] 2 D/M-MODE ECHOCARDIOGRAM Name: SHAILESH ROSALES Room: [address] M.R.#: [id number] Admission: 05/16/20 Attend Phys: Josh Ervin, Discharge: Date of : 49 Date of Service: 05/16/20 1219 Report #: [id number] JJ (VTI): 1.21 cm2 LVOT V1 VTI: 16.51 cm TDI Medial E' Cheo.: 0.12 m/s Lateral E' Cheo.: 0.20 m/s Pulmonary Valve PV Peak Cheo.: 1.09 m/s PV Peak Gr.: 4.76 mmHg Tricuspid Valve RAP Estimate: 5.00 mmHg TR Peak Gr.: 25.93 mmHg RVSP: 30.00 mmHg PA Pressure: 30.00 mmHg Left Ventricle The left ventricle is normal size. paradoxical septal motion consistent with previous thoracotomy There is normal left ventricular wall thickness. Left ventricular systolic function is borderline. LVEF is 50-55%. This study is not technically sufficient to allow evaluation of the LV diastolic function due to atrial fibrillation. Right Ventricle The right ventricle is normal size. The right ventricular systolic function is normal. Atria Left atrium is mildly dilated. The right atrium size is normal. Aortic Valve Bioprosthetic aortic valve is present. No aortic regurgitation is present. Mild aortic stenosis. Mitral Valve The mitral valve is normal in structure. Mild mitral regurgitation. No evidence of mitral valve stenosis. Tricuspid Valve The tricuspid valve is normal in structure. Mild tricuspid regurgitation. estimated pa pressure 35 mm Hg Pulmonic Valve The pulmonary valve is normal in structure. There is trace pulmonic [place] [address] 2 D/M-MODE ECHOCARDIOGRAM Name: CONNIESHAILESH MONSIVAIS Room: [address] Justin Jeong#: [id number] Admission: 05/16/20 Attend Phys: Josh Ervin, Discharge: Date of : 49 Date of Service: 05/16/20 1219 Report #: [id number] Great Vessels The aortic root is normal in size. IVC is normal in size and collapses >50% with inspiration. Pericardium There is no pericardial effusion. <Conclusion> LVEF is 50-55%. Left atrium is mildly dilated. Bioprosthetic aortic valve is present. Mild aortic stenosis. Mild mitral regurgitation. Mild tricuspid regurgitation. estimated pa pressure 35 mm Hg <ELECTRONICALLY SIGNED> By: Tony Young MD, FACC 05/16/201218 18 18 Tony Young MD, FAC /INF
[2020-05-17 00:32] VITALS: BP 96/54
[2020-05-17 04:26] LABS: CALCIUM 8.1 mg/dL (8.5-10.1); POTASSIUM 3.9 mmol/L (3.5-5.1)
[2020-05-17 05:35] VITALS: BP 100/62
--- NOTE | 2020-05-17 05:44 | NUR ---
PATIENT SLEPT PART OF THE NIGHT. PATIENT HAD NO COMPLAINTS OF PAIN OR SHORTNESS OF AIR THIS SHIFT. PATIENT REMAINS AFIB ON MONITOR RATE CONTROLLED. PATIENT COULD POSSIBLY DC HOME TODAY. WILL CONTINUE TO MONITOR.
[2020-05-17] MEDS ORDERED: ELIQUIS5 MG PO (07:54)
[2020-05-17 08:00] VITALS: BP 107/62
[2020-05-17 08:41] VITALS: BP 98/44
--- NOTE | 2020-05-17 11:08 | EKG ---
[place] [address] ELECTROCARDIOGRAM REPORT Name: SHAILESH ROSALES Room: [address] M.R.#: [id number] Admission: 05/16/20 Attend Phys: Josh Ervin, Discharge: Date of : 49 Date of Service: 05/17/20812 Report #: [id number] THIS REPORT FOR: //name// [facility] Test Date: 2020-05-17 Test Time: 08:13:11 Pat Name: SHAILESH ROSALES Department: Room: [address] Gender: M Thread Cutter Tender: : 1945 Requested By: Tony Young Order Number: [id number] Jana MD: Tony Young Measurements Intervals [place] Rate: 72 P: [place]: QRS: 49 QRSD: 91 T: 38 QT: 389 QTc: 426 Interpretive Statements Atrial fibrillation Consider left ventricular hypertrophy Compared to ECG 05/16/2020 02:34:40 No significant changes Electronically Signed On 05-17-2020 11:08:38 DIRECTOR FINANCIAL SERVICES by Tony Young [email or web address] <ELECTRONICALLY SIGNED> By: Tony Young MD, [facility] 05/17/20 1108 2 08 Tony Young MD, [facility] /EPI
[2020-05-17 11:23] VITALS: BP 98/44
--- NOTE | 2020-05-17 11:41 | NUR ---
0900 ASSUMED CARE OF PATIENT FROM JUAN CHARLES RN. SEE DOCUMENTED ASSESSMENT
--- NOTE | 2020-05-17 11:41 | NUR ---
1100 REPORT GIVEN TO MARITA FRY RN
--- NOTE | 2020-05-17 11:47 | NUR ---
DISCONTINUE IV AND TELE. PT UNDERSTANDS ALL FOLLOW UP ORDERS. WILL DISCHARGE TO HOME.
--- NOTE | 2020-05-18 14:47 | NUR ---
Cardiac Rehab follow up call. Left message at phone number on chart.
== END 2020-05-17 12:32 | disposition home or self-care (01) ==
LOC: M.ERS 02:27 → M.TBA-ER 03:58 → M.2W 08:12
PROVIDERS: Emergency Medicine; Internal Medicine Cardiovascular Disease; ADMIT Internal Medicine; ATTEND Internal Medicine
DX: I48.20 Chronic atrial fibrillation, unspecified (principal); I10 Essential (primary) hypertension; F43.10 Post-traumatic stress disorder, unspecified; I25.2 Old myocardial infarction; E78.5 Hyperlipidemia, unspecified; Z79.82 Long term (current) use of aspirin; Z79.899 Other long term (current) drug therapy; Z87.891 Personal history of nicotine dependence; Z20.828 Contact with and (suspected) exposure to other viral communicable diseases; Z95.2 Presence of prosthetic heart valve; Z95.1 Presence of aortocoronary bypass graft; Z86.73 Personal history of transient ischemic attack (TIA), and cerebral infarction without residual deficits

== ENCOUNTER → 2020-05-25 | Outpatient (CLI) | payer MEDICARE ==
[~2020-05-25] MED LIST changes: +LEXAPRO 10 MG T10 M1 PO; +LIPITOR80 MG PO; +LISINOPRIL5 MG PO; +NITROSTAT0.4 M1; +PRILOSEC OTC20 MG PO
== END ==
LOC: M.RAD 13:34
PROVIDERS: ATTEND Orthopaedic Surgery
DX: M25.551 Pain in right hip (principal); Z96.641 Presence of right artificial hip joint

== ENCOUNTER 2020-07-12 23:42 | Observation (INO) | payer MEDICARE ==
[~2020-07-12] VITALS: Ht 185.4 cm; Wt 102.1 kg
--- NOTE | ~2020-07-12 | CON ---
[address] [address] CONSULTATION Name: SHAILESH ROSALES Room: [address] Justin Jeong#: [id number] Admission: 07/13/20 Attend Phys: Marlen Mcfarland MD Discharge: 07/13/20 Date of : 49 Report #: [id number] THIS REPORT FOR: cc: Verna Cruz Linda J. DO Khosla, Parveen K. MD ~ DATE OF SERVICE: 07/13/2020 HISTORY OF PRESENT ILLNESS: This is a 74-year-old male patient who was evaluated by me for numbness on the right side. It came spontaneously. There was no motor weakness. He recovered spontaneously. It lasted about 20 minutes. He does not know what brought it on. Initially, he thought it was his spine because he had those numbness from the spine in the past, but this time, it looks like his face was involved too. He came to Emergency Room and they did multiple workups on him and one of the workups they did was CT angiogram of the head and neck. CT angiogram was basically unremarkable. He is already on anticoagulation because of atrial fibrillation. REVIEW OF SYSTEMS: Indicate that this patient was under the care of a neurologist long time ago when he had a head trauma, but he went back to work after being off work for almost 3 months. I am not sure whether he gives any good history of migraine or not. He has a valve replaced. He has a history of atrial fibrillation. He has a history of shoulder surgery, bilateral knee replacement, hypertension, hyperlipidemia. He had a cervical fracture a long time ago because of trauma and he keeps getting some pain in the neck, which goes down to the right upper extremity. He has a history of vasectomy, tonsillectomy, foot surgery. That was his relevant 14-point review. Presently, he is asymptomatic from the above. FAMILY HISTORY: Negative for any early age stroke. PAST MEDICAL HISTORY: Negative for TIA. SOCIAL HISTORY: He stopped smoking 25 years ago and he uses alcohol very rarely. PHYSICAL EXAMINATION: Indicates that he is alert, responsive. His speech, concentration and fund of knowledge are at his baseline. Cranial nerve examination 2-12 looks unremarkable. His strength, sensation, reflexes and tone are symmetrical, but his reflexes appear to be diminished on both sides. There is no meningeal sign. There is no cerebellar sign. I could not look at the patient's fundus. He is a very built individual. He does not have any dysmorphic features of eyes, ears and face. His vision and hearing looks adequate. His pulses are palpable. He has no edema, cyanosis [place] [address] CONSULTATION Name: SHAILESH ROSALES Room: [address] MMichaelRMichael#: [id number] Admission: 07/13/20 Attend Phys: Marlen Mcfarland MD Discharge: 07/13/20 Date of : 49 Report #: [id number] Blood pressure is 138/67, pulse 75, temperature 97.5. LABORATORY DATA: Indicates a white count of 7.6 and GFR of 111. IMPRESSION: The patient's clinical presentation is consistent with transient ischemic attack. He desperately wants to go home. He is already on anticoagulation. I told him that he does need further workup. He needs an MRI of the brain, assuming the valve is compatible with MRI. He wants to do it as an outpatient. We will set it up. He should contact his recreation assistant to see if they want to do a JESSICA on him. He did have an echo in May, so I did not reorder it because they may like to do a JESSICA and if he wants, we can do those testing as an outpatient. He really wants to go home and he wants to get it done as an outpatient and we will do that. Thank you very much for this referral. By: [id number] Mayfield MD /vandana
[2020-07-12 23:44] VITALS: BP 149/70
[2020-07-13] MEDS ORDERED: ZESTRIL5 MG PO (00:15)
[2020-07-13 00:16] LABS: ABSOLUTE BASOPHILS 0.1 thou/uL (0.0-0.2); ABSOLUTE EOSINOPHILS 0.2 thou/uL (0.0-0.7); ABSOLUTE LYMPHOCYTES 1.8 thou/uL (0.8-5.3); ABSOLUTE MONOCYTES 0.8 thou/uL (0.0-1.2); ABSOLUTE NEUTROPHILS 4.8 thou/uL (1.6-8.1); BASOPHILS 0.9 %; HEMATOCRIT 40.8 % (42.0-52.0); LYMPHOCYTES 23.4 %; MCH 24.8 pg (26.0-34.0); MCV 77.6 fL (80.0-100.0); MONOCYTES 9.9 %; MPV 7.8 fl. (7.2-11.1); NUCLEATED RBCS 0 /100WBC; PLATELET COUNT* 229 thou/uL (150-400); POLYS 62.8 %; RBC 5.25 mil/uL (4.50-6.00); RDW-CV 15.3 % (10.5-14.5); WBC 7.6 thou/uL (4.0-11.0)
[2020-07-13] MEDS ORDERED: HYDROCODON-ACE1 EAC8 PO (00:16)
[2020-07-13 00:22] LABS: CALCIUM 8.8 mg/dL (8.5-10.1); CREATININE 0.8 mg/dL (0.6-1.3); POTASSIUM 4.4 mmol/L (3.5-5.1)
[2020-07-13 00:23] LABS: INR 1.2; PROTIME 12.8 Seconds (9.20-11.50)
[2020-07-13 00:33] LABS: ALBUMIN 3.3 g/dL (3.4-5.0); MAGNESIUM 2.1 mg/dL (1.8-2.4); TOTAL BILIRUBIN 0.5 mg/dL (<0.1-1.0); TOTAL PROTEIN 6.7 g/dL (6.4-8.2)
[2020-07-13 03:45] VITALS: BP 132/66
[2020-07-13 10:17] LABS: CALCIUM 8.4 mg/dL (8.5-10.1); CREATININE 0.7 mg/dL (0.6-1.3); TOTAL BILIRUBIN 0.7 mg/dL (<0.1-1.0); TOTAL PROTEIN 6.1 g/dL (6.4-8.2)
--- NOTE | 2020-07-13 11:14 | EKG ---
[place] [address] ELECTROCARDIOGRAM REPORT Name: CONNIESHAILESH LOI Room: [address] M.R.#: [id number] Admission: 07/13/20 Attend Phys: Marlen Mcfarland MD Discharge: Date of : 49 Date of Service: 07/12/20 2347 Report #: [id number] THIS REPORT FOR: //name// [facility] ED Test Date: 2020-07-12 Test Time: 23:47:25 Pat Name: SHAILESH ROSALES Department: Room: [facility] Gender: M Supervisor Backfilling: RANDY : 1945 Requested By: Elissa Martinez Order Number: [id number] MD: Tony Young Measurements Intervals [place] Rate: 59 P: 62 WV: 207 QRS: 51 QRSD: 89 T: 59 QT: 392 QTc: 389 Interpretive Statements Sinus rhythm Probable left atrial enlargement Probable left ventricular hypertrophy ST elevation, consider early repolarization Compared to ECG 05/17/2020 08:13:11 Atrial fibrillation no longer present Electronically Signed On 07-13-2020 11:14:40 CDT by Tony Young [email or web address] <ELECTRONICALLY SIGNED> By: Tony Young MD, FAC 07/13/20 1114 2347 2347 Tony Young MD, FAC /EPI
[2020-07-13 12:01] VITALS: BP 116/57
[2020-07-13 16:32] VITALS: BP 138/67
[2020-07-13 18:01] VITALS: BP 138/67
[2020-07-14 03:06] LABS: GLYCOHEMOGLOBIN (HGB A1C) 5.3 % (4.8-5.6)
== END 2020-07-13 22:35 | disposition home or self-care (01) ==
LOC: M.ERS 23:42 → M.TBA-ER 07-13 02:32 → M.2W 07-13 03:49
PROVIDERS: Emergency Medicine; Internal Medicine; ADMIT Family Medicine; ATTEND Family Medicine
DX: G45.9 Transient cerebral ischemic attack, unspecified (principal); R20.2 Paresthesia of skin; Z20.822 Contact with and (suspected) exposure to COVID-19; G89.29 Other chronic pain; M19.90 Unspecified osteoarthritis, unspecified site; F41.9 Anxiety disorder, unspecified; F43.10 Post-traumatic stress disorder, unspecified; I35.9 Nonrheumatic aortic valve disorder, unspecified; I48.91 Unspecified atrial fibrillation; I25.10 Atherosclerotic heart disease of native coronary artery without angina pectoris; I10 Essential (primary) hypertension; I25.2 Old myocardial infarction; Z88.1 Allergy status to other antibiotic agents; Z88.2 Allergy status to sulfonamides; Z88.6 Allergy status to analgesic agent; Z79.82 Long term (current) use of aspirin; Z79.899 Other long term (current) drug therapy; Z90.89 Acquired absence of other organs; Z90.49 Acquired absence of other specified parts of digestive tract; Z87.891 Personal history of nicotine dependence

== ENCOUNTER → 2020-07-15 | Outpatient (CLI) | payer MEDICARE ==
[~2020-07-15] MED LIST changes: +ZESTRIL5 MG PO
== END ==
LOC: M.MRI 08:01
PROVIDERS: ATTEND Psychiatry & Neurology Neuromuscular Medicine
DX: I67.82 Cerebral ischemia (principal); G45.0 Vertebro-basilar artery syndrome

== ENCOUNTER → 2021-05-09 | Outpatient (CLI) | payer MEDICARE ==
--- NOTE | 2021-05-09 16:54 | CARDNUC ---
[place] [address] CARDIAC NUCLEAR IMAGING REPORT Name: SHAILESH ROSALES Room: [facility]#: [id number] Admission: 05/09/21 Attend Phys: Dieudonne Rojas, Discharge: Date of : 49 Date of Service: 05/09/21 1653 Report #: [id number] THIS REPORT FOR: cc: Verna Cruz Linda J. DO Liston,Dieudonne Quiroga MD [facility] ~ APPROVED REPORT Imaging Protocol: Stress Tc-99m/Rest Tc-99m 1 day Study performed: 05/09/2021 09:45:00 Indication: Chest pain Patient Location: Observation Stress Nurse: YECENIA Taveras Tech:ALANNAH Lopez Ht: 6 ft 0 in Wt: 215 lbs BSA: 2.20 m2 BMI: 29.15 Medical History Medical History: Atrial Fibrillation, CAD non obstructive, Carotid artery disease, Former Smoker, HTN, Hyperlipidemia, Stroke/TIA, Valvular heart disease Medications: apixaban, asa-81, atorvastatin, diltiazem, lisinopril, metoprolol, ntg Allergies: cipro, sulfa, napoxen Cardiac Risk Factors: Age, FHX of CAD, HTN, Hyperlipidemia, Past Smoker Exercise History: Sedentary Meds Held (24 hrs): metoprolol Resting Data Rest SPECT myocardial perfusion imaging was performed in supine position 30 minutes following the intravenous injection of 10.4 mCi of Tc-99m Sestamibi. Time of rest injection: 09:55 The images were gated to evaluate regional wall motion and calculate left ventricular ejection fraction. Administration Route: IV Administration Site: Right Arm Pharmacologic Stress Pharmacologic stress test was performed by injecting Regadenoson 0.4 mg IV push over 10-15 seconds immediately [place] [address] CARDIAC NUCLEAR IMAGING REPORT Name: SHAILESH ROSALES Room: [facility]#: [id number] Admission: 05/09/21 Attend Phys: Dieudonne Rojas, Discharge: Date of : 49 Date of Service: 05/09/21 1653 Report #: [id number] injection of 34.8 mCi of Tc-99m Sestamibi. Time of stress injection: 11:00 Administration Route: IV Administration Site: Right Arm Heart Rate at time of stress injection: 98 bpm. Gated Stress SPECT was performed 45 minutes after stress injection. The images were gated to evaluate regional wall motion and calculate left ventricular ejection fraction. Stress only was performed in the Supine position. Stress Test Details Stress Test: Pharmacologic stress testing performed using 0.4 mg of regadenoson per 5 mL given IV over 10 seconds. Reason for pharmacologic stress test: physical limitation. HR Max Heart Rate (APMHR): 147 bpm Resting HR: 84 bpm Target HR (85% APMHR): 124 bpm Max HR Achieved: 103 bpm % of APMHR: 70 Recovery HR: 92 bpm BP Resting BP: 156/94 mmHg Max BP: 151/58 mmHg Recovery BP: 150/68 mmHg ECG Resting ECG: Sinus Rhythm Stress ECG: Sinus Tachycardia ST Change: None Arrhythmia: None Recovery ECG: Sinus Rhythm Recovery ST Change: None Recovery Arrhythmia: None Clinical Reason for Termination: Completed protocol The patient had symptoms of chest discomfort radiating to the shoulders and neck with Lexiscan infusion. Pain relieved after a second nitroglycerin and 500 mL bolus of normal saline. Nurse Comments patient co increased soa, bilateral neck pain, chest pressure after injection of augusto. Resolution of neck pain with coffee but still co chest pressure and soa. Dr Rojas contacted and sl nt was ordered and given. Some releif of pain. 2nd ntg with 500 [place] [address] CARDIAC NUCLEAR IMAGING REPORT Name: CONNIESHAILESH LOI Room: [facility]#: [id number] Admission: 05/09/21 Attend Phys: Dieudonne Rojas, Discharge: Date of : 49 Date of Service: 05/09/21 1653 Report #: [id number] orderd and given. Pain down to 05/11. Dr Fair came in to to see the paitient. States to go ahead with scan and then he can go home and to return to the ed if symptoms get worse. Stress ECG Conclusion The baseline twelve-lead EKG shows sinus rhythm without significant ST segment or T wave abnormality. EKGs obtained during and post Lexiscan infusion show sinus rhythm and sinus tachycardia with no significant ST segment or T wave changes when compared to baseline. There were no stress-induced arrhythmias. Study Quality Study: Good Artifact: No artifact Study Data At rest, the left ventricular ejection fraction was 65%.. Post stress, the left ventricular ejection was 62%.. TID = 0.90. Perfusion Perfusion images obtained at rest and post Lexiscan stress show a moderate size severe intensity fixed defect involving the basal inferior wall consistent with prior infarct. No other significant fixed or reversible defects were identified. Wall Motion There is a focal region of akinesis involving the basal inferior wall. Global LV systolic function is preserved. Nuclear Conclusion ECG Findings: negative for ischemia Clinical Findings: positive for ischemia Nuclear Findings: negative for ischemia Exercise Capacity: not assessed Left Ventricular Function: Preserved Perfusion images show evidence of prior inferior wall infarct. Global LV systolic function is preserved with wall motion abnormalities as outlined above. This is not a high risk study. <Conclusion> The baseline twelve-lead EKG shows sinus rhythm without significant ST segment or T wave abnormality. EKGs obtained during and post Lexiscan infusion show sinus rhythm and sinus tachycardia with no [facility] [address] [place] [address] CARDIAC NUCLEAR IMAGING REPORT Name: SHAILESH ROSALES Room: [facility]#: [id number] Admission: 05/09/21 Attend Phys: Dieudonne Rojas, Discharge: Date of : 49 Date of Service: 05/09/21 1657 Report #: [id number] segment or T wave changes when compared to baseline. There were no stress-induced arrhythmias. <ELECTRONICALLY SIGNED> By: Dieudonne Rojas MD, FACC 05/09/211652 52 52 Dieudonne Rojas MD, FACC /INF
== END ==
LOC: M.NUC 09:37
PROVIDERS: ATTEND Internal Medicine Cardiovascular Disease
DX: I25.9 Chronic ischemic heart disease, unspecified (principal); I10 Essential (primary) hypertension; E78.00 Pure hypercholesterolemia, unspecified; I77.9 Disorder of arteries and arterioles, unspecified; I48.91 Unspecified atrial fibrillation; G45.9 Transient cerebral ischemic attack, unspecified; F17.200 Nicotine dependence, unspecified, uncomplicated; Z79.899 Other long term (current) drug therapy

== ENCOUNTER 2021-05-20 22:09 | Observation (INO) | payer MEDICARE ==
[~2021-05-20] VITALS: Ht 180.3 cm; Wt 96.6 kg
[~2021-05-20 22:09] MED LIST changes: +ASPIRIN EC81 M1 PO; -ASPIRIN81 M2 PO
[2021-05-20 22:11] VITALS: BP 133/72
[2021-05-20 22:39] LABS: HEMATOCRIT 51.2 % (42.0-52.0); HEMOGLOBIN 16.8 gm/dL (14.0-18.0); MCHC 32.9 g/dL (28.0-37.0); MPV 7.5 fl. (7.2-11.1); NUCLEATED RBCS 0 /100WBC; PLATELET COUNT* 113 thou/uL (150-400); RBC 6.48 mil/uL (4.50-6.00); RDW-CV 17.9 % (10.5-14.5); WBC 15.5 thou/uL (4.0-11.0)
[2021-05-20 22:51] LABS: CALCIUM 9.3 mg/dL (8.5-10.1); POTASSIUM 4.4 mmol/L (3.5-5.1)
[2021-05-20 22:52] LABS: INR 1.3; PROTIME 13.3 Seconds (9.20-11.50)
[2021-05-20 23:00] LABS: ABSOLUTE EOSINOPHILS 0.2 thou/uL (0.0-0.7); ABSOLUTE LYMPHOCYTES 0.8 thou/uL (0.8-5.3); ABSOLUTE MONOCYTES 0.5 thou/uL (0.0-1.2); ABSOLUTE NEUTROPHILS 14.1 thou/uL (1.6-8.1)
[2021-05-20 23:01] LABS: ALBUMIN 3.4 g/dL (3.4-5.0); ANISOCYTOSIS 1+; MAGNESIUM 2.1 mg/dL (1.8-2.4); MICROCYTES Occasional; PLATELET ESTIMATE ADEQUATE; TOTAL BILIRUBIN 1.6 mg/dL (<0.1-1.0); TOTAL PROTEIN 6.6 g/dL (6.4-8.2)
[2021-05-21 00:03] LABS: URINE BILIRUBIN NEGATIVE (Negative); URINE BLOOD 1+ (Negative); URINE COLOR DARK YELLOW; URINE GLUCOSE-RANDOM NEGATIVE (Negative); URINE KETONES NEGATIVE (Negative); URINE LEUKOCYTES-REFLEX 1+ (Negative); URINE PROTEIN TRACE (Negative); URINE SPECIFIC GRAVITY 1.025 (1.005-1.030)
[2021-05-21 00:04] LABS: URINE CLARITY SL CLOUDY; URINE NITRITE-REFLEX POSITIVE (Negative)
[2021-05-21 00:10] LABS: BACTERIA-REFLEX >30 Many /HPF (None Seen); CASTS None Seen /LPF (None Seen); CRYSTALS None Seen /LPF (None Seen); MUCUS 4-6 Moderate strn/LPF (None Seen); SQUAMOUS 0-3 Few /LPF (0-3); URINE WBC-REFLEX >25 Many /HPF (0-5)
[2021-05-21 03:10] VITALS: BP 115/72
[2021-05-21] MEDS ORDERED: LISINOPRIL10 MG PO (03:39)
[2021-05-21 04:08] VITALS: BP 103/59
--- NOTE | 2021-05-21 05:27 | NUR ---
PT IS NEW ADMIT TO FLOOR APPROX 0400 FROM ED WHERE HE CAME IN EMS FOR WEAKNESS HE WAS FOUND TO HAVE A UTI. PT IS AO X4 WITH HX OF PTSD AND CHRONIC PAIN. LUNGS ARE DIMINISHED BUT CLEAR, PT DENIES COUGH AT THIS TIME. HE HAS URGENT URINATION AND IS GETTING NS AT 100mL/HR . PT TAKES METHADONE AND HYDROCODONE FOR CHRONIC PAIN AND HAS NOT HAD THESE SINCE EARLY YESTERDAY. HOME MEDS HAVE BEEN REVIEWED WITH PT. PT IS UP WITH ASSIST AND BED ALARM ON FOR PT SAFETY.
[2021-05-21 06:11] VITALS: BP 105/62
[2021-05-21 08:00] VITALS: BP 118/61
[2021-05-21] MEDS ORDERED: CEFDINIR300 MG PO (09:54)
--- NOTE | 2021-05-21 10:25 | EKG ---
[place] [address] ELECTROCARDIOGRAM REPORT Name: CONNIESHAILESH LOI Room: [address] M..#: [id number] Admission: 05/21/21 Attend Phys: Molly Ball, Discharge: Date of : 49 Date of Service: 05/20/212214 Report #: [id number] THIS REPORT FOR: //name// [facility] ED Test Date: 2021-05-20 Test Time: 22:15:39 Pat Name: SHAILESH ROSALES Department: Room: [facility] Gender: M Plate Grinder: JANICE : 1945 Requested By: Elissa Martinez Order Number: [id number] MD: Curtis Quintero Measurements Intervals [place] Rate: 99 P: 74 [place]: 175 QRS: 63 QRSD: 85 T: 65 QT: 310 QTc: 398 Interpretive Statements Sinus rhythm Left atrial enlargement Probable left ventricular hypertrophy Inferior infarct, possibly acute (RCA) Probable RV involvement, suggest recording right precordial leads Compared to ECG 09/14/2020 11:21:35 Myocardial infarct finding now present but were also seen on prior EKG from 2020 but to a lesser degree. ST (T wave) deviation no longer present Electronically Signed On 05-21-2021 10:25:15 STONE CRUSHER OPERATOR by Curtis Quintero [email or web address] <ELECTRONICALLY SIGNED> By: Nikolai Quintero MD, [facility] 05/21/21 1025 14 14 Nikolai Quintero MD, [facility] /EPI
[2021-05-21 12:00] VITALS: BP 119/72
[2021-05-21 15:05] VITALS: BP 119/72
--- NOTE | 2021-05-21 17:52 | NUR ---
PT DISCHARGED HOME WITH ALL BELONGINGS, ACCOMPANIED BY HIS SON. PT UP AMBULATES WELL, VSS AFEBRILE. SALINE LOCK REMOVED HUB INTACT. PT UNDERSTANDS ALL DISCHARGE INSTRUCTION. PT DISCHARGED HOME.
== END 2021-05-21 18:03 | disposition home or self-care (01) ==
LOC: M.ERS 22:09 → M.TBA-ER 05-21 01:38 → M.2W 05-21 03:19
PROVIDERS: Emergency Medicine; ADMIT Internal Medicine; ATTEND Internal Medicine
DX: N39.0 Urinary tract infection, site not specified (principal); Z20.822 Contact with and (suspected) exposure to COVID-19; R53.1 Weakness; I10 Essential (primary) hypertension; E78.5 Hyperlipidemia, unspecified; I48.91 Unspecified atrial fibrillation; I25.10 Atherosclerotic heart disease of native coronary artery without angina pectoris; Z95.2 Presence of prosthetic heart valve; Z86.73 Personal history of transient ischemic attack (TIA), and cerebral infarction without residual deficits; Z98.890 Other specified postprocedural states; Z88.8 Allergy status to other drugs, medicaments and biological substances; Z88.1 Allergy status to other antibiotic agents; Z88.2 Allergy status to sulfonamides; Z79.899 Other long term (current) drug therapy; Z87.891 Personal history of nicotine dependence